=== PATIENT | female | born 1970 | race Caucasian/White ===

== ENCOUNTER 2016-08-20 14:20 | Emergency (ER) | payer OTHER ==
[~2016-08-20] VITALS: Ht 154.9 cm; Wt 95.5 kg
[~2016-08-20 14:20] MED LIST: ACET-1917 PO; NAPR220C11 PO
[2016-08-20 14:24] VITALS: BP 130/84; PULSE 87; RESP 16; O2SAT 98
--- NOTE | 2016-08-20 16:47 | ED.REPORT ---
HPI-Abd Pain F 40 and Over Date of Service Aug 20, 2016 ED Provider: Dr. Deep Ayala M.D. History of Present Illness: 45yo female with reported recent hx. of ongoing oral and esophegeal thrush, failing treatment with diflucan, nistatin, on now on tizinadine. Voice is hoarse today. No fever or dysphagia. Pt. is frustrated no imprvement after several weeks and several; visits to PCP. Nursing Notes Stated Complaint: ESOPHAGEAL THRUSH Chief Complaint: Female Abdominal Pain Nursing Notes Reviewed: Yes Allergies: Coded Allergies: meperidine (Verified Adverse Reaction, Severe, N/V, 10/02/13) morphine (Unverified Adverse Reaction, Severe, N&V, 10/02/13) Scheduled PRN Acetaminophen (8 Hour Pain Relief) 650 Mg Tablet.er 650 MG PO PRN PRN PRN For Pain Naproxen Sod-Expunged Drug, Do Not Renew!! (Aleve-Expunged Drug,Do Not Renew!) 220 Mg Capsule 220 MG PO PRN PRN PRN For Pain General Time Seen by MD: 16:46 Chief Complaint Other sore throat/reported esophageal thrush Hx Obtained From: Patient, Other family... (Mother) Sudden in Onset?: No Onset Occurred: More than a week ago... (3 weeks) Progression since Onset: Gradually worsening Location: : Epigastric Quality: Same as prior Radiation: : Does not radiate Severity: Current: Moderate Severity: Maximum: Moderate Pertinent Negative: Pt denies other symptoms Recent Healthcare: Recent doctor visit, Previous diagnosis Similar Sx Previous: Yes Risk Factors )( AAA Risk Stratification Risk factors reviewed Ectopic Risk Stratification Risk factors reviewed CAD Risk Stratification Risk factors reviewed TAD Risk Stratification Risk factors reviewed Past Medical History Past Medical History Notes: Past Medical History Back injury Osteoarthritis Past Surgical History Hysterecomy Right TKA Right knee scope Smoking History Former Smoker Social History Other Social History: Good social support Ambulatory Status Independent Review of Systems Constitutional: Denies: Chills, Fever Respiratory: Denies: Shortness of breath Cardiovascular: Denies: Chest pain GI: Reports: Abdominal pain, Denies: Nausea, Vomiting Complete sys rev & neg: except as marked. Ears / Nose / Throat: Reports: Throat pain, Voice change Physical Exam Vital Signs Vital Signs (First) Date Time Temp Pulse Resp B/P Pulse Ox O2 Delivery O2 Flow Rate FiO2 08/20/16 14:24 37.1 87 16 130/84 98 Room Air Initial VS: Reviewed ENT: Mucous membranes moist Neck: Supple Lymphatic: No lymphadenopathy General/Constitutional: Awake, Alert, Well hydrated, Not toxic appearing Respiratory / Chest: Breath sounds NL, Breath sounds = bilat, No respiratory distress Cardiovascular: Heart rate NL, Regular rhythm, Heart sounds NL Abdomen: Soft, Non-tender Interpretation & Diagnostics Lab Results Interpretation Result Diagram: 08/20/16 1709 08/20/16 1709 Test 08/20/16 17:09 White Blood Count 7.9th/mm3 (3.8-10.1) Red Blood Count 4.73mil/mm3 (3.90-5.20) Hemoglobin 14.3g/dL (12.0-15.6) Hematocrit 42.8% (35.0-46.0) Mean Corpuscular Volume 90.5fL (81-100) Mean Corpuscular Hemoglobin 30.2pg (27.0-35.0) Mean Corpuscular Hemoglobin Concent 33.4% (32.0-37.0) Red Cell Distribution Width 13.1% (12.3-15.4) Platelet Count 207bil/L (150-400) Neutrophils (%) (Auto) 63.3% (40-74) Lymphocytes (%) (Auto) 27.9% (14-46) Monocytes (%) (Auto) 5.3% (4-12) Eosinophils (%) (Auto) 2.8% (0-5) Basophils (%) (Auto) 0.3% (0-3) Sodium Level 141mEq/L (134-144) Potassium Level 4.8mEq/L (3.5-5.2) Chloride Level 100mEq/L (97-108) Carbon Dioxide Level 28mmol/L (18-29) Blood Urea Nitrogen 15mg/dL (6-24) Creatinine 0.79mg/dL (0.57-1.00) Estimat Glomerular Filtration Rate 112mL/min (>59) Glucose Level 98mg/dL (60-99) Calcium Level 9.2mg/dL (8.5-10.1) Total Bilirubin 0.3mg/dL (0.0-1.2) Aspartate Amino Transf (AST/SGOT) 24U/L (0-50) Alanine Aminotransferase (ALT/SGPT) 35U/L (0-32) Alkaline Phosphatase 64U/L (25-150) Total Protein 7.2g/dL (6.4-8.4) Albumin 4.3g/dL (3.4-5.0) Lipase 55U/L (13-60) Thyroid Stimulating Hormone (TSH) 2.410uIU/mL (0.450-4.500) Hold Lares Top Tube Received (Received) Re-Eval/Medical Decision Med Decision/Clinical Course labs WNL, reviewed with Dr. Ayala Seen by Dr. Ayala at 18:06: An otherwise healthy 45 year old female presents to the ED with hoarse voice onset two months ago, which began intermittently. The patient has also gradually began experiencing fatigue, mild throat swelling, and right-sided chest "aching" that has spread to her right arm, breasts, and back. She denies fever, weight loss, or diaphoresis. The patient has been seen by her PCP multiple times with these symptoms and has been treated for laryngitis and thrust, currently on Terbinafine. She was also seen on 08/08/16 at [facility] ED where she was diagnosed with bronchitis and URA, and placed on Azithromycin, doxycycline, fluconazole, lorazepam and prednisone. On physical exam the patient is awake and alert, speaking with a hoarse voice. Her lungs are clear and her heart is regular rate and rhythm, no gallops, murmurs, or rubs. She has a soft abdomen with normal bowel sounds and no hepatomegaly or splenomegaly. Her oropharynx is injected with no thrust present. She has no cervical adenopathy but may have thyromegaly. Counseled Regarding: Diagnosis, Lab results, Need for follow-up, When/why to return to ED Discharge & Departure Primary Impression: Hoarseness of voice Disposition: Home Discharge Condition All VS Reviewed: Yes Condition: Stable Patient Instructions: Canker Sores (ED) Additional Instructions: continue meds as prescribed. Call ENT office tomorrow Return to ER if anything worsens. Referrals: Matti Romero MD 1 Day ENT follow up EDSupervising Provider for APC: Deep Ayala MD Scribe Attestation Portions of this note were transcribed by Tierra Ludwig. I, Dr. Ayala, personally performed the history, physical exam, and medical decision-making; I reviewed and confirmed the accuracy of the information in the transcribed note. Attending Statement See my note in MDM. No acute issue identified, will refer to ENT given perisitent hoarseness. copies to: Davey Blank MD, Christopher R PAC Aug 20, 2016 16:47 TIERRA LUDWIG Aug 20, 2016 18:11 Deep Ayala MD Aug 20, 2016 21:37
[2016-08-20 17:37] LABS: BASOPHILS % (AUTO) 0.3 % (0-3); EOSINOPHILS % (AUTO) 2.8 % (0-5); MONOCYTES % (AUTO) 5.3 % (4-12); Mean Corpuscular Hemoglobin 30.2 pg (27.0-35.0); Mean Corpuscular Volume 90.5 fL (81-100); NEUTROPHILS % (AUTO) 63.3 % (40-74); Platelet Count 207 bil/L (150-400)
== END 2016-08-20 19:17 | disposition home or self-care (01) ==
LOC: SED 14:20
DX: R49.0 Dysphonia (principal); Z87.891 Personal history of nicotine dependence; Z88.5 Allergy status to narcotic agent